=== PATIENT | male | born 1935 ===

== ENCOUNTER → 2020-05-17 | Outpatient (CLI) | payer MEDICARE, OTHER ==
[~2020-05-17] MED LIST: ST JOHNS WORT
== END | disposition home or self-care (01) ==
LOC: LAB SHORT 14:36 → PLD 14:36
DX: C44.319 Basal cell carcinoma of skin of other parts of face (principal); L82.1 Other seborrheic keratosis
CPT/HCPCS: 88305

== ENCOUNTER → 2020-05-24 | Outpatient (CLI) | payer MEDICARE, OTHER | END | disposition home or self-care (01) | LOC: LAB SHORT 12:12 → PLD 12:12 | DX: C44.319 Basal cell carcinoma of skin of other parts of face (principal) | CPT/HCPCS: 88305 ==

== ENCOUNTER 2021-02-28 06:59 | Day surgery (SDC) | payer MEDICARE, OTHER ==
[~2021-02-28] VITALS: Ht 177.8 cm; Wt 80.0 kg
[~2021-02-28 06:59] MED LIST changes: +ASPI81CH PO; +ATOR20 PO; +CLOP75 PO; +FINA5 PO; +LISI20 PO; +METO25ER PO; +OMEP20ER PO; +TAMS.4ER PO; +VITAMIN D310 MC4 PO; +VITAMIN D31000 UNI1 PO
--- NOTE | 2021-02-28 10:50 | NUR ---
PT RETURNED TO RECOVERY ROOM POST PROCEDURE. PT AMB TO BATHROOM WITH SBA, GAIT STEADY; VOIDED QS. PT AWAKE AND ORIENTED, COOPERATIVE; DENIES CHEST PAIN POST PROCEDURE. R RADIAL SITE GRADE I HEMATOMA, SOFT AND W/I MAPPING, TR BAND IN PLACE; RUE POSITIVE PLEUTH POST TR BAND PLACEMENT. PT DENIES PAIN AT SITE.
--- NOTE | 2021-02-28 13:15 | NUR ---
1255 Started taking air out of TR band. After removing up to 5 ml, noticed fulness proximal to the tr band towards the thumb. Replaced 3 ml and held manual pressure. continue to monitor.
--- NOTE | 2021-02-28 14:14 | NUR ---
DR OLGUIN HERE TO EVALUATE R WRIST, OK TO DISCHARGE IN 2 HRS IF REMAINS UNCHANGED.
--- NOTE | 2021-02-28 14:46 | NUR ---
PT AMB TO BATHRROM WITHOUT ISSUE, SITE UNCHANGED WITH ACTIVITY.
--- NOTE | 2021-02-28 16:03 | NUR ---
PT AND RECEIVED DISCHARGE INSTRUCTIONS, SITE MANAGEMENT, MED LIST AND AFTER CARE INSTRUCTIONS; VERBALIZED GOOD UNDERSTANDING. PT LEFT FACILITY VIA W/C, CONDITION STABLE.
--- NOTE | 2021-02-28 16:10 | NUR ---
PT AMB TO BATHRROM WITHOUT ISSUE, SITE UNCHANGED. PT DRESSED SELF WITH MIN ASSISTANCE SITE UNCHANGED; IV REMOVED-CANNULA INTACT. TR BAND REMOVED, CLOTH DOT AND WRIST IMMOBILZIER PLACED; PT PLACED IN SLING PER REQUEST.
== END 2021-02-28 16:03 | disposition home or self-care (01) ==
LOC: MHTC 06:59
DX: I25.118 Atherosclerotic heart disease of native coronary artery with other forms of angina pectoris (principal); I10 Essential (primary) hypertension; E78.5 Hyperlipidemia, unspecified; K21.9 Gastro-esophageal reflux disease without esophagitis; Z95.5 Presence of coronary angioplasty implant and graft; Z79.02 Long term (current) use of antithrombotics/antiplatelets; Z79.82 Long term (current) use of aspirin; Z79.899 Other long term (current) drug therapy
CPT/HCPCS: 76937; 85347; 92978; 93454; 93571; 99152; 99153; A9270; C1725; C1753; C1769; C1874; C1887; C1894; C9600; J2250; J3010; J7030; J7040; J7050; Q9967

== ENCOUNTER → 2021-12-05 | Outpatient (CLI) | payer MEDICARE, OTHER | END | disposition home or self-care (01) | LOC: LAB SHORT 11:06 | DX: C44.612 Basal cell carcinoma of skin of right upper limb, including shoulder (principal); L82.1 Other seborrheic keratosis | CPT/HCPCS: 88305 ==

== ENCOUNTER 2022-01-09 06:39 | Day surgery (SDC) | payer MEDICARE ==
[~2022-01-09] VITALS: Ht 177.8 cm; Wt 79.0 kg
[2022-01-09] MEDS ORDERED: Isosorbide Mono30 MG PO (07:08)
[2022-01-09] MEDS ORDERED: RANO500T PO (09:41)
--- NOTE | 2022-01-09 11:36 | NUR ---
RIGHT WRIST TR BAND DEFLATION STARTED. PT DENIES PAIN, SITE APPEARS SOFT WITH NO BLEEDING OR OOZING. VSS. PT APPEARS TO BE RESTING WITH EYES CLOSED INTERMITTENTLY. WILL CONTINUE TO MONITOR.
--- NOTE | 2022-01-09 12:56 | NUR ---
PT DRESSED WITH ASSISTANCE. SALINE LOCK REMOVED WITH CATHETER INTACT. TR BAND REMOVED, AREA CLEANSED, AND CLOTH DOT PLACED. ARM BOARD TO R WRIST. PT GIVEN DISCHARGE INSTRUCTIONS WOULD LIKE INSTRUCTIONS REVIEWED WITH AND DAUGHTER.
--- NOTE | 2022-01-09 13:17 | NUR ---
DISCHARGE INSTRUCTIONS REVIEWED WITH FAMILY, ALL VERBALIZE UNDERSTANDING OF INSTRUCTIONS. PT TO PRIVATE VEHICLE PER W/C.
== END 2022-01-09 13:15 | disposition home or self-care (01) ==
LOC: MHTC 06:39
DX: I25.110 Atherosclerotic heart disease of native coronary artery with unstable angina pectoris (principal); I11.9 Hypertensive heart disease without heart failure; E78.5 Hyperlipidemia, unspecified; I35.1 Nonrheumatic aortic (valve) insufficiency; K21.9 Gastro-esophageal reflux disease without esophagitis; Z88.1 Allergy status to other antibiotic agents; Z87.891 Personal history of nicotine dependence
CPT/HCPCS: 85347; 93454; 93571; 93572; 99152; 99153; A9270; C1769; C1887; C1894; J1644; J2250; J3010; J7030; J7040; Q9967